=== PATIENT | male | born 1975 | race Caucasian/White ===

== ENCOUNTER 2017-11-04 15:30 | Emergency (ER) | payer BC ==
--- NOTE | 2017-11-04 15:32 | ER Report ---
History and Physical Time Seen By MD: 15:32 Hx. of Stated Complaint: right flank pain HPI/ROS 41 year old male with sudden onset at 1400 of right flank pain that wraps around . nausea Allergies: Coded Allergies: No Known Drug Allergies (Unverified , 11/04/17) Home Meds Active Scripts Ondansetron (ZOFRAN ODT) 4 Mg Tab.rapdis, 4 MG PO Q6H Y for NAUSEA/VOMITING, # 20 TAB.LISBET Prov:LORETTA URENA APRN-C 11/04/17 Hydrocodone Bit/Acetaminophen (NORCO 5-325 TABLET) 1 Each Tablet, 1 EACH PO Q4- 6H Y for PAIN, #20 TAB Prov:LORETTA URENA APRN-C 11/04/17 Tamsulosin Hcl (FLOMAX) 0.4 Mg Cap.er.24h, 0.4 MG PO DAILY, #10 CAP Prov:LORETTA URENA APRN-C 11/04/17 Reported Medications Bupropion Hcl (WELLBUTRIN XL) 150 Mg Tab.er.24h, 150 MG PO QDAY, TAB 11/04/17 Past Medical/Surgical History History of depression Reviewed Nurses Notes: Yes Old Medical Records Reviewed: Yes Hx Smoking: No Exposure to Second Hand Smoke?: No Hx Substance Use Disorder: No Hx Alcohol Use: No Family History of: HTN Constitutional Vital Sign - Last 24 Hours 11/04/17 11/04/17 11/04/17 11/04/17 15:39 15:40 15:45 16:00 Temp 97.8 Pulse 69 85 52 Resp 24 B/P (MAP) 146/98 146/98 (114) 121/69 (86) Pulse Ox 96 95 92 O2 Delivery Room Air 11/04/17 11/04/17 11/04/17 11/04/17 16:05 16:20 16:35 16:50 Pulse 74 55 50 55 Pulse Ox 93 93 94 95 11/04/17 11/04/17 11/04/17 11/04/17 17:00 17:05 17:20 17:30 Pulse 78 72 B/P (MAP) 113/71 (85) 127/73 (91) Pulse Ox 95 95 11/04/17 11/04/17 11/04/17 11/04/17 17:35 17:50 18:00 18:05 Pulse 54 85 65 B/P (MAP) 127/76 (93) Pulse Ox 95 96 95 11/04/17 11/04/17 11/04/17 11/04/17 18:20 18:30 18:35 18:50 Pulse 69 62 72 B/P (MAP) 122/81 (95) Pulse Ox 93 91 94 Intake and Output 11/04/17 11/04/17 11/05/17 14:59 22:59 06:59 Intake Total 1000 ml Balance 1000 ml Physical Exam General Appearance: [The patient is alert, anxious moderate distress has no immediate need for airway protection and no current signs of toxicity.] [ ] Eyes: Pupils equal and round no injection. Respiratory: Chest is non tender, lungs are clear to auscultation. Cardiac: regular rate and rhythm [ ] Gastrointestinal: Abdomen is soft and non tender, no masses, bowel sounds normal right CVA tenderness. Musculoskeletal: Neck: Neck is supple and non tender. Extremities have full range of motion and are non tender. Skin: No rashes or lesions. [ ] DIFFERENTIAL DIAGNOSIS: After history and physical exam differential diagnosis was considered for renal calculi, muscle strain, pancreatitis, appendicitis [ ] Medical Decision Making Data Points Result Diagram: 11/04/17 1555 11/04/17 1555 Laboratory Hematology Test 11/04/17 15:41 11/04/17 15:55 Urine Color Yellow Urine Clarity Clear Urine pH 5.0 pH (4.8-9.5) Urine Specific [place] 1.020 Urine Protein Negative mg/dL (NEGATIVE) Urine Glucose (UA) Negative mg/dL (NEGATIVE) Urine Ketones Negative mg/dL (NEGATIVE) Urine Blood Negative (NEGATIVE) Urine Nitrite Negative (NEGATIVE) Urine Bilirubin Negative (NEGATIVE) Urine Urobilinogen Negative mg/dL (0.2-1.9) Urine Leukocyte Esterase Negative (NEGATIVE) Urine RBC 1 /HPF (0-2/HPF) Urine WBC 3 /HPF (0-5/HPF) Urine Squamous Epithelial Cells None /LPF (</=FEW) Urine Bacteria Negative /HPF (NONE-FEW) Urine Mucus None /HPF (NONE-FEW) Red Blood Count 5.21 M/uL (4.00-5.60) Mean Corpuscular Volume 83.9 fL (80.0-96.0) Mean Corpuscular Hemoglobin 29.5 pg (26.0-33.0) Mean Corpuscular Hemoglobin Concent 35.1 g/dL (32.0-36.0) Red Cell Distribution Width 13.6 % (11.5-14.5) Mean Platelet Volume 7.1 fL (7.2-11.1) Neutrophils (%) (Auto) 66.3 % (39.4-72.5) Lymphocytes (%) (Auto) 25.8 % (17.6-49.6) Monocytes (%) (Auto) 6.7 % (4.1-12.4) Eosinophils (%) (Auto) 0.8 % (0.4-6.7) Basophils (%) (Auto) 0.4 % (0.3-1.4) Nucleated RBC Relative Count (auto) 0.0 /100WBC Neutrophils # (Auto) 7.1 K/uL (2.0-7.4) Lymphocytes # (Auto) 2.8 K/uL (1.3-3.6) Monocytes # (Auto) 0.7 K/uL (0.3-1.0) Eosinophils # (Auto) 0.1 K/uL (0.0-0.5) Basophils # (Auto) 0.0 K/uL (0.0-0.1) Nucleated RBC Absolute Count (auto) 0.00 K/uL Sodium Level 141 mmol/L (137-145) Potassium Level 3.7 mmol/L (3.5-5.0) Chloride Level 102 mmol/L (98-107) Carbon Dioxide Level 26 mmol/L (22-30) Blood Urea Nitrogen 14 mg/dl (9-21) Creatinine 1.10 mg/dl (0.66-1.25) Glomerular Filtration Rate Calc > 60.0 Random Glucose 102 mg/dl (75-110) Lactate 2.1 mmol/L (0.7-2.1) Calcium Level 9.4 mg/dl (8.4-10.2) Total Bilirubin 0.5 mg/dl (0.2-1.3) Aspartate Amino Transf (AST/SGOT) 26 U/L (0-35) Alanine Aminotransferase (ALT/SGPT) 35 U/L (0-56) Alkaline Phosphatase 109 U/L (0-126) Total Protein 7.3 gm/dl (6.3-8.2) Albumin 4.1 g/dl (3.5-5.0) Amylase Level 71 U/L (0-110) Lipase 127 U/L (23-300) Chemistry Test 11/04/17 15:41 11/04/17 15:55 Urine Color Yellow Urine Clarity Clear Urine pH 5.0 pH (4.8-9.5) Urine Specific [place] 1.020 Urine Protein Negative mg/dL (NEGATIVE) Urine Glucose (UA) Negative mg/dL (NEGATIVE) Urine Ketones Negative mg/dL (NEGATIVE) Urine Blood Negative (NEGATIVE) Urine Nitrite Negative (NEGATIVE) Urine Bilirubin Negative (NEGATIVE) Urine Urobilinogen Negative mg/dL (0.2-1.9) Urine Leukocyte Esterase Negative (NEGATIVE) Urine RBC 1 /HPF (0-2/HPF) Urine WBC 3 /HPF (0-5/HPF) Urine Squamous Epithelial Cells None /LPF (</=FEW) Urine Bacteria Negative /HPF (NONE-FEW) Urine Mucus None /HPF (NONE-FEW) White Blood Count 10.8 k/uL (4.5-11.0) Red Blood Count 5.21 M/uL (4.00-5.60) Hemoglobin 15.3 g/dL (14.0-18.0) Hematocrit 43.7 % (42.0-52.0) Mean Corpuscular Volume 83.9 fL (80.0-96.0) Mean Corpuscular Hemoglobin 29.5 pg (26.0-33.0) Mean Corpuscular Hemoglobin Concent 35.1 g/dL (32.0-36.0) Red Cell Distribution Width 13.6 % (11.5-14.5) Platelet Count 307 K/uL (150-450) Mean Platelet Volume 7.1 fL (7.2-11.1) Neutrophils (%) (Auto) 66.3 % (39.4-72.5) Lymphocytes (%) (Auto) 25.8 % (17.6-49.6) Monocytes (%) (Auto) 6.7 % (4.1-12.4) Eosinophils (%) (Auto) 0.8 % (0.4-6.7) Basophils (%) (Auto) 0.4 % (0.3-1.4) Nucleated RBC Relative Count (auto) 0.0 /100WBC Neutrophils # (Auto) 7.1 K/uL (2.0-7.4) Lymphocytes # (Auto) 2.8 K/uL (1.3-3.6) Monocytes # (Auto) 0.7 K/uL (0.3-1.0) Eosinophils # (Auto) 0.1 K/uL (0.0-0.5) Basophils # (Auto) 0.0 K/uL (0.0-0.1) Nucleated RBC Absolute Count (auto) 0.00 K/uL Glomerular Filtration Rate Calc > 60.0 Lactate 2.1 mmol/L (0.7-2.1) Calcium Level 9.4 mg/dl (8.4-10.2) Total Bilirubin 0.5 mg/dl (0.2-1.3) Aspartate Amino Transf (AST/SGOT) 26 U/L (0-35) Alanine Aminotransferase (ALT/SGPT) 35 U/L (0-56) Alkaline Phosphatase 109 U/L (0-126) Total Protein 7.3 gm/dl (6.3-8.2) Albumin 4.1 g/dl (3.5-5.0) Amylase Level 71 U/L (0-110) Lipase 127 U/L (23-300) Urinalysis Test 11/04/17 15:41 Urine Color Yellow Urine Clarity Clear Urine pH 5.0 pH (4.8-9.5) Urine Specific [place] 1.020 Urine Protein Negative mg/dL (NEGATIVE) Urine Glucose (UA) Negative mg/dL (NEGATIVE) Urine Ketones Negative mg/dL (NEGATIVE) Urine Blood Negative (NEGATIVE) Urine Nitrite Negative (NEGATIVE) Urine Bilirubin Negative (NEGATIVE) Urine Urobilinogen Negative mg/dL (0.2-1.9) Urine Leukocyte Esterase Negative (NEGATIVE) Urine RBC 1 /HPF (0-2/HPF) Urine WBC 3 /HPF (0-5/HPF) Urine Squamous Epithelial Cells None /LPF (</=FEW) Urine Bacteria Negative /HPF (NONE-FEW) Urine Mucus None /HPF (NONE-FEW) EKG/Imaging Imaging FACILITY: PATIENT NAME: Humberto Soto : 1975 MR: [id number] V: [id number] EXAM DATE: ORDERING PHYSICIAN: LORETTA URENA TECHNOLOGIST: Location: [facility] Patient: Humberto Soto : 1975 Visit/Account:[id number] Date of Sevice: 11/04/2017 ABDOMEN/PELVIS W/O CONTRAST HISTORY: right flank pain TECHNIQUE: Axial images acquired through the abdomen/pelvis. Coronal and sagittal reformatting also performed. No IV contrast administered. Dose Lowering Technique One of the following dose optimization techniques was utilized in the performance of this exam: Automated exposure control; adjustment of the mA and/ or kV according to the patient's size; or use of an iterative reconstruction technique. Specific details can be referenced in the facility's radiology CT exam operational policy. COMPARISON: None. FINDINGS: Visualized lung bases: Negative. Hepatobiliary: Negative. Spleen: Negative. Adrenals: Negative. Pancreas: Negative Kidneys ureters and bladder: The mild right hydronephrosis and mild right hydroureter. There is a 3 mm calcification projecting along the posterior right side the bladder which may be within the right UVJ or just passed into the bladder. There is mild perinephric stranding on the right. There is a 2 mm nonobstructing calculus mid pole the right kidney. No calculi identified in the left renal collecting system. Urinary bladder is decompressed Genitalia: Negative. GI: There is diverticulosis left-sided colon although no CT evidence of acute diverticulitis the appendix is visualized and does not appear inflamed Vessels/spaces/nodes: There are small scattered mesenteric lymph nodes in the right-sided the abdomen Bones/soft tissues: There is a small umbilical hernia containing fat Additional findings: None pertinent. IMPRESSION: Is mild right hydronephrosis mild right hydroureter and perinephric stranding on the right. There is a 3 mm calcination projecting along the posterior right side the bladder which may be within the right UVJ or just passed into the bladder. Additional 2 mm nonobstructing calculus mid pole right kidney Diverticulosis left-sided colon Small scattered mesenteric lymph nodes Small umbilical hernia containing fat Report Dictated By: Miroslava Cox MD at 11/04/2017 4:47 PM Report E-Signed By: Miroslava Cox MD at 11/04/2017 4:53 PM WSN:SANDOVAL ED Course/Re-evaluation Clinical Indication for ER IV: Hydration ED Course 1 L normal saline given fentanyl titrated for pain relief total of 175 g 30 of Toradol IV had no severe pain in on dismissal stated besides an aching in his right groin Re-evaluation Patient had a small 2 mm stone, talk to radiologist he felt that it was passed into the bladder when this scan was being done Decision to Disposition Date: November 04, 2017 Decision to Disposition Time: 17:54 Depart Departure Latest Vital Signs Vital Signs Date Time Temp Pulse Resp B/P (MAP) Pulse Ox O2 Delivery O2 Flow Rate FiO2 11/04/17 18:50 72 94 11/04/17 18:30 122/81 (95) 11/04/17 15:39 97.8 24 Room Air Impression: Primary Impression: Kidney stone Condition: Improved Disposition: HOME OR SELF-CARE Referrals: UROLOGY 2 Days New Scripts Ondansetron (ZOFRAN ODT) 4 Mg Tab.rapdis 4 MG PO Q6H Y for NAUSEA/VOMITING, #20 TAB.LISBET Prov: LORETTA URENA 11/04/17 Hydrocodone Bit/Acetaminophen (NORCO 5-325 TABLET) 1 Each Tablet 1 EACH PO Q4-6H Y for PAIN, #20 TAB Prov: LORETTA URENA 11/04/17 Tamsulosin Hcl (FLOMAX) 0.4 Mg Cap.er.24h 0.4 MG PO DAILY, #10 CAP Prov: LORETTA URENA 11/04/17 Patient Instructions: Kidney Stones (ED) Additional Instructions: Take medications as prescribed, follow-up with urology, return to emergency room for worsening of condition LORETTA URENA November 04, 2017 15:32
[2017-11-04] MEDS ORDERED: NS(*) 0.9% 1000 ML BAG 1,000 ML IV ONE (15:39)
[2017-11-04] MEDS ORDERED: KETOROLAC 30 MG/ML VIAL IVP ONE (15:45)
[2017-11-04] MEDS ORDERED: fentaNYL CITR 100 MCG/2 ML AMP IVP ONE ×3 (15:50→18:05)
[2017-11-04] MEDS ORDERED: IOPAMIDOL 76% 75 ML INFUS BTL 0 ML ONE (15:57)
[2017-11-04] MEDS ORDERED: BUPR-472 PO (16:03)
[2017-11-04 16:06] LABS: PLATELET COUNT, AUTOMATED 307 K/uL (150-450)
--- NOTE | 2017-11-04 16:59 | RADIOLOGY IMAGING REPORT ---
FACILITY: [facility] PATIENT NAME: Humberto Soto : 1975 MR: [id number] V: [id number] EXAM DATE: ORDERING PHYSICIAN: LORETTA URENA TECHNOLOGIST: Location: [facility] [place] Patient: Humberto Soto : 1975 Visit/Account:[id number] Date of Sevice: 11/04/2017 ABDOMEN/PELVIS W/O CONTRAST HISTORY: right flank pain TECHNIQUE: Axial images acquired through the abdomen/pelvis. Coronal and sagittal reformatting also performed. No IV contrast administered. Dose Lowering Technique One of the following dose optimization techniques was utilized in the performance of this exam: Autom ated exposure control; adjustment of the mA and/or kV according to the patient's size; or use of an i terative reconstruction technique. Specific details can be referenced in the facility's radiology C T exam operational policy. COMPARISON: None. FINDINGS: Visualized lung bases: Negative. Hepatobiliary: Negative. Spleen: Negative. Adrenals: Negative. Pancreas: Negative Kidneys ureters and bladder: The mild right hydronephrosis and mild right hydroureter. There is a 3 mm calcification projecting along the posterior right side the bladder which may be within the right UVJ or just passed into the bladder. There is mild perinephric stranding on the right. There is a 2 mm nonobstructing calculus mid pole the right kidney. No calculi identified in the left renal colle cting system. Urinary bladder is decompressed Genitalia: Negative. GI: There is diverticulosis left-sided colon although no CT evidence of acute diverticulitis the mario endix is visualized and does not appear inflamed Vessels/spaces/nodes: There are small scattered mesenteric lymph nodes in the right-sided the abdome n Bones/soft tissues: There is a small umbilical hernia containing fat Additional findings: None pertinent. IMPRESSION: Is mild right hydronephrosis mild right hydroureter and perinephric stranding on the right. There is a 3 mm calcination projecting along the posterior right side the bladder which may be within the rig ht UVJ or just passed into the bladder. Additional 2 mm nonobstructing calculus mid pole right kidney Diverticulosis left-sided colon Small scattered mesenteric lymph nodes Small umbilical hernia containing fat Report Dictated By: Miroslava Cox MD at 11/04/2017 4:47 PM Report E-Signed By: Miroslava Cox MD at 11/04/2017 4:53 PM CLN:SANDOVAL
[2017-11-04] MEDS ORDERED: TAMSULOSIN HCL 0.4 MG CAP PO ONE (17:15)
[2017-11-04] MEDS ORDERED: ONDA4TAB PO (17:26)
[2017-11-04] MEDS ORDERED: HYDR-4309 PO (17:26)
[2017-11-04] MEDS ORDERED: TAMS0.4C25 PO (17:26)
[2017-11-04 18:30] VITALS: BP 122/81
== END 2017-11-04 19:07 | disposition home or self-care (01) ==
LOC: ER 15:32
DX: N20.0 Calculus of kidney (principal); N13.30 Unspecified hydronephrosis; N13.4 Hydroureter; K57.30 Diverticulosis of large intestine without perforation or abscess without bleeding; K42.9 Umbilical hernia without obstruction or gangrene
CPT/HCPCS: 74176; 81001; 82150; 83605; 83690; 85025; 96361; 96374; 96375; 96376; 99284; J1885; J3010; J7030; 82040; 82247; 82310; 82374; 82435; 82565; 82947; 84075; 84132; 84155; 84295; 84450; 84460; 84520; Q9967

== ENCOUNTER → 2017-11-05 | Outpatient (REF) | payer BC ==
[~2017-11-05] MED LIST: BUPR-472 PO; HYDR-4309 PO; ONDA4TAB PO; TAMS0.4C25 PO
== END ==
LOC: ZZSENDIN 14:30
PROVIDERS: ATTEND Urology
DX: N20.0 Calculus of kidney (principal)
CPT/HCPCS: 82365; 88300